=== PATIENT | female | born 1970 | race Caucasian/White ===

== ENCOUNTER 2023-02-25 10:35 | Outpatient (REF) | payer OTHER, SELFPAY ==
--- NOTE | ~2023-02-25 | MR_ITS ---
EXAMINATION: MR LUMBAR SPINE WITHOUT AND WITH CONTRAST CLINICAL INFORMATION: Low back pain. Radiculopathy. COMPARISON: None TECHNIQUE: MRI of the lumbar spine was obtained using routine sequences without and with intravenous contrast. A total of 7 mL Gadavist was intravenously administered. FINDINGS: There are postoperative findings related to instrumented fusion at L4-L5 with transpedicular screws, paired rods, and an interbody device within the disc space. The nonsurgical disc heights are preserved. The alignment appears normal. There is small focus of marrow edema at the inferior endplate of L1 likely related to small Schmorl's node The distal spinal cord appears normal. The conus medullaris terminates normally at the L1 level. There is no abnormal enhancement along the cauda equina nerve roots. The extraspinal soft tissues appear normal. SPINAL LEVELS: L1-L2: No posterior disc abnormality. No spinal canal or neural foraminal stenosis. L2-L3: No posterior disc abnormality. No spinal canal or neural foraminal stenosis. L3-L4: No posterior disc abnormality. Minimal facet arthropathy. Mild bilateral neural foraminal stenosis. No spinal canal stenosis. L4-L5: Instrumented fusion changes. Disc bulging with facet arthropathy. No spinal canal stenosis. Moderate right neural foraminal stenosis with abutment of the exiting right L4 nerve root. L5-S1: Disc bulging with small central protrusion moderate facet arthropathy. No spinal canal stenosis. Mild left and moderate right neural foraminal stenosis. MR/MR lumbar spine wo/w con IMPRESSION: 1. Postoperative findings related to instrumented fusion at L4-L5. Moderate right neural foraminal stenosis with abutment of the exiting right L4 nerve root. 2. At L5-S1 there is mild left and moderate right neural foraminal stenosis.
== END 2023-02-25 10:36 | disposition home or self-care (01) ==
LOC: HO.MRI 10:35
PROVIDERS: PCP Internal Medicine; Visit Provider Neurological Surgery
DX: M54.50 Low back pain, unspecified (principal)
CPT/HCPCS: 72158; A9585